=== PATIENT | male | born 1975 | race Two or more races ===

== ENCOUNTER 2020-07-19 20:30 | Emergency (ER) | payer BC, OTHER ==
[~2020-07-19] VITALS: Ht 172.7 cm; Wt 84.1 kg
[2020-07-19] MEDS ORDERED: proparacaine 0.5% ophthalmic drops 15ml EACHEYE ONE (20:50)
[2020-07-19] MEDS ORDERED: ERYT1OIN6 RIGHTEYE (21:43)
[2020-07-19] MEDS ORDERED: erythromycin ophthalmic ointment 1gm tube EACHEYE ONE (22:40)
[2020-07-19 22:45] VITALS: BP 151/89
== END 2020-07-19 22:46 | disposition home or self-care (01) ==
LOC: ER 20:31
DX: H10.211 Acute toxic conjunctivitis, right eye (principal); Z88.8 Allergy status to other drugs, medicaments and biological substances; Z79.2 Long term (current) use of antibiotics
CPT/HCPCS: 99283